=== PATIENT | male | born 1965 | race Caucasian/White ===

== ENCOUNTER 2022-03-02 23:34 | Emergency (ER) | payer SELFPAY ==
[~2022-03-02] VITALS: Ht 175.3 cm; Wt 66.3 kg
[~2022-03-02 23:34] MED LIST: AMLO5TAB4 PO; MULT-445 PO; Metoprolol Tartrate PO
[2022-03-03] MEDS ORDERED: KETOROLAC 30 MG/ML VIAL. IVP ONE (00:30)
[2022-03-03] MEDS ORDERED: IV NORMAL SALINE 1000ML BAG 1,000 ML IV SCH (00:30)
[2022-03-03] MEDS ORDERED: ONDANSETRON PF 4 MG/2 ML VIAL. IVP ONE (00:30)
[2022-03-03 00:35] LABS: BASO # 0.1 x10^3/uL (0.0-0.2); BASO % 3 % (0-3); EOS # 0.1 x10^3/uL (0.0-0.7); EOS % 3 % (0-3); HEMATOCRIT 44.1 % (39.0-53.0); HEMOGLOBIN 15.3 g/dL (13.0-17.5); LYMPH # 0.6 x10^3/uL (1.0-4.8); LYMPH % 15 % (24-48); MEAN CORPUSCULAR HEMOGLOBIN 34 pg (25-35); MEAN CORPUSCULAR HGB CONC 35 g/dL (31-37); MEAN CORPUSCULAR VOLUME 97 fL (79-100); MONO # 1.1 x10^3/uL (0.0-1.1); MONO % 27 % (0-9); NEUT # 2.1 x10^3/uL (1.8-7.7); NEUT % 53 % (31-73); PLATELET COUNT 195 x10^3/uL (140-400); RED BLOOD COUNT 4.53 x10^6/uL (4.30-5.70); RED CELL DISTRIBUTION WIDTH 12.6 % (11.5-14.5); WHITE BLOOD COUNT 3.9 x10^3/uL (4.0-11.0)
[2022-03-03 00:44] LABS: CREATININE 0.8 mg/dL (0.7-1.3); GFR 100.7
--- NOTE | 2022-03-03 00:46 | PHYS DOC ---
Past Medical History Past Medical History: No Pertinent History, Alcoholism Past Surgical History: Other Additional Past Surgical Histo: Femur sugery Smoking Status: Current Every Day Smoker Alcohol Use: Heavy Drug Use: Marijuana General Adult EDM: Chief Complaint: HYPERTENSION HPI: HPI: Patient is a 56 year old M who presents with headache, body aches, nausea and vomiting with streaks of blood and bilious emesis and elevated blood pressure. Patient has a past medical history of hypertension for which he takes amlodipine and metoprolol, has not missed any doses. Patient also has a history of chronic alcohol use, says he drinks between 15 and 17 beers a day but today because he was not feeling well he only drank approximately 4 beers this morning. Patient is visibly trembling on arrival and actively vomiting. Review of Systems: Review of Systems: Constitutional: Denies fever or chills. [] Eyes: Denies change in visual acuity. [] HENT: c/o nasal congestion but no sore throat. [] Respiratory: Denies cough or shortness of breath. [] Cardiovascular: Denies chest pain or edema. [] GI: c/o abdominal pain, nausea, vomiting. Denies bloody stools or diarrhea. [] : Denies dysuria. [] Musculoskeletal: c/o back pain and joint pain. [] Integument: Denies rash. [] Neurologic: c/o headache but denies focal weakness or sensory changes. [] Endocrine: Denies polyuria or polydipsia. [] Lymphatic: Denies swollen glands. [] Psychiatric: Denies depression or anxiety. [] Heart Score: C/O Chest Pain: No Risk Factors: Risk Factors: DM, Current or recent (<one month) smoker, HTN, HLP, family history of CAD, obesity. Risk Scores: Score 0 - 3: 2.5% MACE over next 6 weeks - Discharge Home Score 4 - 6: 20.3% MACE over next 6 weeks - Admit for Clinical Observation Score 7 - 10: 72.7% MACE over next 6 weeks - Early Invasive Strategies Current Medications: Current Medications Medications (Trade) Dose Ordered Sig/Paddy Start Time Stop Time Status Last Admin Dose Admin Ketorolac Tromethamine (Toradol 30mg Vial) 30 mg 1X ONCE 03/03/22 00:30 03/03/22 00:31 DC 03/03/22 00:33 30 MG Lorazepam (Ativan Inj) 2 mg 1X STAT 03/03/22 00:23 03/03/22 00:29 DC 03/03/22 00:33 2 MG Ondansetron HCl (Zofran) 4 mg 1X ONCE 03/03/22 00:30 03/03/22 00:31 DC 03/03/22 00:33 4 MG Sodium Chloride 1,000 ml @ 100 mls/hr Q10H 03/03/22 00:30 03/03/22 10:29 03/03/22 00:32 100 MLS/HR Allergies: Allergies: Allergies Coded Allergies Type Severity Reaction Last Updated Verified Penicillins Allergy Unknown 03/03/22 No morphine Allergy Unknown 03/03/22 No Physical Exam: PE: Constitutional: Well developed, well nourished, no acute distress, non-toxic appearance. [] HENT: Normocephalic, atraumatic, bilateral external ears normal, oropharynx moist, no oral exudates, nose normal. [] Eyes: PERRLA, EOMI, conjunctiva normal, no discharge. [] Neck: Normal range of motion, no tenderness, supple, no stridor. [] Cardiovascular:Heart rate regular rhythm, no murmur [] Lungs & Thorax: Bilateral breath sounds clear to auscultation [] Abdomen: Bowel sounds normal, soft, no tenderness, no masses, no pulsatile masses. [] Skin: Warm, dry, no erythema, no rash. [] Back: No tenderness, no CVA tenderness. [] Extremities: No tenderness, no cyanosis, no clubbing, ROM intact, no edema. [] Neurologic: Alert and oriented X 3, normal motor function, normal sensory functi on, no focal deficits noted. [] Psychologic: Affect normal, judgement normal, mood normal. [] Current Patient Data: Labs: Laboratory Tests Test 03/03/22 00:25 White Blood Count 3.9 x10^3/uL (4.0-11.0) L Red Blood Count 4.53 x10^6/uL (4.30-5.70) Hemoglobin 15.3 g/dL (13.0-17.5) Hematocrit 44.1 % (39.0-53.0) Mean Corpuscular Volume 97 fL (79-100) Mean Corpuscular Hemoglobin 34 pg (25-35) Mean Corpuscular Hemoglobin Concent 35 g/dL (31-37) Red Cell Distribution Width 12.6 % (11.5-14.5) Platelet Count 195 x10^3/uL (140-400) Neutrophils (%) (Auto) 53 % (31-73) Lymphocytes (%) (Auto) 15 % (24-48) L Monocytes (%) (Auto) 27 % (0-9) H Eosinophils (%) (Auto) 3 % (0-3) Basophils (%) (Auto) 3 % (0-3) Neutrophils # (Auto) 2.1 x10^3/uL (1.8-7.7) Lymphocytes # (Auto) 0.6 x10^3/uL (1.0-4.8) L Monocytes # (Auto) 1.1 x10^3/uL (0.0-1.1) Eosinophils # (Auto) 0.1 x10^3/uL (0.0-0.7) Basophils # (Auto) 0.1 x10^3/uL (0.0-0.2) Platelet Estimate Pending Laboratory Tests 03/03/22 00:25 Vital Signs: Vital Signs Date Time Temp Pulse Resp B/P (MAP) Pulse Ox O2 Delivery O2 Flow Rate FiO2 03/02/22 23:40 98.0 82 20 174/97 (122) 97 Room Air 98.0 EKG: EKG: [] Radiology/Procedures: Radiology/Procedures: [] Course & Med Decision Making: Course & Med Decision Making Patient with moderately elevated blood pressure, active trembling and vomiting. Unclear if the blood pressure is causal or secondary to another process. Given the history of heavy alcohol use daily suspect the patient has some degree of alcohol withdrawal at this time. We will treat patient symptoms with IV fluids, Zofran, Toradol, Ativan and reassess blood pressure once he is feeling more comfortable. Also check basic labs to rule out infection, significant lecture light imbalance, alcohol level. Patient not have any focal deficits or vertigo to suggest an acute stroke. Patient's blood pressure is not significantly elevated enough to raise concerns for possible subarachnoid hemorrhage or hemorrhagic stroke. Patient feeling much better after Ativan, Zofran, IV fluid, Toradol. Patient's blood pressure is down in the 140s and 150s and he is sleeping comfortably no longer vomiting. Labs significant with mildly elevated AST and ALT consistent with alcoholic cirrhosis. Labs otherwise unremarkable. Patient will be provided copies of his labs to follow-up with his primary doctor to discuss possibility of getting assistance with stopping drinking. Dragon Disclaimer: Dragon Disclaimer: This electronic medical record was generated, in whole or in part, using a voice recognition dictation system. Departure Departure Impression: Primary Impression: Elevated liver enzymes Additional Impressions: Alcohol dependence Qualified Codes: F10.230 - Alcohol dependence with withdrawal, uncomplicated Hypertension Qualified Codes: I10 - Essential (primary) hypertension Nausea and vomiting Qualified Codes: R11.14 - Bilious vomiting Disposition: 01 HOME / SELF CARE / HOMELESS Condition: IMPROVED Referrals: NO PCP (PCP) Patient Instructions: Alcohol Withdrawal, [id number], Hypertension During , [id number] CRUZ CANA[place] MD March 03, 2022 00:46
[2022-03-03 00:50] LABS: DIRECT BILIRUBIN 0.2 mg/dL (0.0-0.2); TOTAL PROTEIN 8.7 g/dL (6.4-8.2)
[2022-03-03 02:13] VITALS: BP 157/85
[2022-03-03 02:40] LABS: BACTERIA,URINE 0 /HPF (0-FEW); RBC,URINE 0 /HPF (0-2); WBC,URINE 0 /HPF (0-4)
[2022-03-03 03:10] LABS: % BANDS 5 % (0-9); % BASOS 2 % (0-3); % EOS 1 % (0-5); % LYMPHS 18 % (24-48); % METAS 1 % (0-0); % MONOS 23 % (0-10); % SEGS 50 % (35-66); PLT ESTIMATE ADEQUATE (ADEQUATE); TOXIC GRANULATION SLIGHT; TOXIC VACUOLATION MOD
== END 2022-03-03 02:38 | disposition home or self-care (01) ==
LOC: ER 23:34
DX: R74.8 Abnormal levels of other serum enzymes (principal); F10.230 Alcohol dependence with withdrawal, uncomplicated; I10 Essential (primary) hypertension; R11.2 Nausea with vomiting, unspecified; F17.210 Nicotine dependence, cigarettes, uncomplicated; Z88.0 Allergy status to penicillin; Z88.5 Allergy status to narcotic agent; Y90.0 Blood alcohol level of less than 20 mg/100 ml
CPT/HCPCS: 36415; 80048; 80076; 81001; 82550; 83690; 84484; 85007; 85025; 96361; 96374; 96375; 99285; G0480; J1885; J2060; J2405; J7030